=== PATIENT | female | born 1945 | race Caucasian/White ===

== ENCOUNTER 2016-08-31 15:39 | Emergency (ER) | payer OTHER ==
[~2016-08-31] VITALS: Ht 163.8 cm; Wt 87.3 kg
[2016-08-31 15:42] VITALS: BP 190/106; PULSE 96; RESP 16; O2SAT 99
--- NOTE | 2016-08-31 16:14 | ED.REPORT ---
HPI-General Illness Date of Service August 31, 2016 ED Provider: Dr. Harish Kelly 71 year old female who presents to the ER due to confusion since 1100 this AM. This morning the patient vomited 3 times in the bathroom. While talking to her later, she could not recall vomiting. He reports that she has asked some other questions repeatedly. Pt has no history of similar. Pt reports occasional constipation, but denies fever, pain,recent falls or any injury. Nursing Notes Stated Complaint: HIGH BP,LOSS OF MEMORY,CONFUSION Chief Complaint: Neuro Symptoms/ Deficits Nursing Notes Reviewed: Yes Allergies: Coded Allergies: No Known Allergies (Verified Allergy, Mild, 05/13/07) General Time Seen by MD: 16:14 Chief Complaint Altered mental status (Confusion) Hx Obtained From: Patient, Other family... Arrived By: Walk-in Sudden in Onset?: Yes Onset Occurred: 5 - 8 hours ago Symptom Duration: Since onset Severity: Current: No pain currently Similar Sx Previous: No Past Medical History Past Medical History Denies: Congestive heart failure, Coronary artery disease, Diabetes mellitus, Hypertension, Stroke Past Surgical History Reports: Tonsillectomy Smoking History Former Smoker Social History Alcohol Use: 3-5 per day Other Social History: Good social support, Ambulatory Status Independent Review of Systems Full Review of Systems Constitutional: Denies: Fever Respiratory: Denies: Non-productive cough, Shortness of breath GI: Reports: Constipation (on occasion), Nausea, Vomiting, Denies: Abdominal pain, Diarrhea Neurologic: Reports: Confusion, Denies: Headache Complete sys rev & neg: except as marked. Physical Exam Vital Signs Vital Signs Date Time Temp Pulse Resp B/P Pulse Ox O2 Delivery O2 Flow Rate FiO2 08/31/16 18:43 83 27 157/78 93 Room Air 08/31/16 16:57 73 15 170/63 97 Room Air 08/31/16 15:42 36.8 96 16 190/106 99 Room Air Initial VS: Reviewed, Vital signs abnormal General/Constitutional: Well-developed, Well-nourished Head / Eyes: Atraumatic, Normocephalic, PERRL ENT: Mucous membranes moist, Conjunctiva normal, No scleral icterus Neck: Supple, Non-tender, Full range of motion Respiratory: Breath sounds normal, Clear to auscultation, No respiratory distress Cardiovascular: Regular rate & rhythm, Heart sounds normal, Intact distal pulses Abdomen / GI: Soft, Non-tender, No guarding, No rebound, No distention Extremities: Vascular intact, Neuro intact, No swelling, No tenderness Skin: Warm, Dry, No cyanosis Neurologic: Alert, Oriented, Nonfocal Psychiatric: Mood/affect normal, Behavior normal, Normal thought content NIH Stroke Scale Level of Consciousness: Alert and responsive (0) Ask Month & Age: Both questions right (0) Open/Close Eyes/Hand [employer] Le[employer] Manager: Performs both tasks (0) Horizontal EO Movements: None (0) Visual Eckert: No visual loss (0) Facial Palsy: Normal symmetry (0) Right Arm Motor Drift (10s): No drift 10 sec (0) Left Arm Motor Drift (10s): No drift 10 sec (0) Right Leg Motor Drift (5s): No drift 5 sec (0) Left Leg Motor Drift (5s): No drift 5 sec (0) Limb Ataxia FNF/Heel-Srivastava: No ataxia (0) Sensation (Arms/Legs/Face): No sensory loss (0) Language Aphasia: No aphasia, normal (0) Dysarthria: No dysarthria, normal (0) Extinction/Inattention: No exctinct/inattent (0) NIHSS Score: 0 Time NIHSS Performed: 16:24 Date NIHSS Performed: August 31, 2016 Interpretation & Diagnostics Lab Results Interpretation Result Diagram: 08/31/16 1625 08/31/16 1625 Test 08/31/16 16:25 08/31/16 17:38 White Blood Count 6.6th/mm3 (3.8-10.1) Red Blood Count 5.19mil/mm3 (3.90-5.20) Hemoglobin 15.8g/dL (12.0-15.6) Hematocrit 45.7% (35.0-46.0) Mean Corpuscular Volume 88.1fL (81-100) Mean Corpuscular Hemoglobin 30.4pg (27.0-35.0) Mean Corpuscular Hemoglobin Concent 34.6% (32.0-37.0) Red Cell Distribution Width 14.0% (12.3-15.4) Platelet Count 281bil/L (150-400) Neutrophils (%) (Auto) 59.2% (40-74) Lymphocytes (%) (Auto) 31.0% (14-46) Monocytes (%) (Auto) 4.2% (4-12) Eosinophils (%) (Auto) 5.2% (0-5) Basophils (%) (Auto) 0.2% (0-3) Hold Purple Top Tube Received (Received) Hold Blue Top Tube Received (Received) Sodium Level 142mEq/L (134-144) Potassium Level 4.2mEq/L (3.5-5.2) Chloride Level 105mEq/L (97-108) Carbon Dioxide Level 22mmol/L (18-29) Blood Urea Nitrogen 16mg/dL (8-27) Creatinine 0.64mg/dL (0.57-1.00) Estimat Glomerular Filtration Rate 131mL/min (>59) Glucose Level 129mg/dL (60-99) Calcium Level 9.4mg/dL (8.5-10.1) Total Bilirubin 0.5mg/dL (0.0-1.2) Aspartate Amino Transf (AST/SGOT) 20U/L (0-50) Alanine Aminotransferase (ALT/SGPT) 14U/L (0-32) Alkaline Phosphatase 76U/L (25-165) Total Protein 6.9g/dL (6.4-8.4) Albumin 4.2g/dL (3.4-5.0) Thyroid Stimulating Hormone (TSH) 2.700uIU/mL (0.450-4.500) Hold [place] Top Tube Received (Received) Urine Color Yellow (YELLOW) Urine Appearance Clear (CLEAR,HAZY) Urine pH 5.5 (5.0-8.0) Urine Specific [place] 1.020 (1.003-1.035) Urine Protein Negativemg/dL (NEG,TRACE) Urine Glucose (UA) Negativemg/dL (NEGATIVE) Urine Ketones 40mg/dL (NEGATIVE) Urine Occult Blood Negative (NEGATIVE) Urine Nitrite Positive (NEGATIVE) Urine Bilirubin Negative (NEGATIVE) Urine Urobilinogen Normalmg/dL (NORMAL) Urine Leukocyte Esterase Trace (NEGATIVE) Urine RBC 0-2/hpf (0-2) Urine WBC 11-50/hpf (0-5) Urine Epithelial Cells Few/hpf (NONE-MOD) Urine Crystals None seen (NONE SEEN) Urine Bacteria Many/hpf (NONE-FEW) Urine Hyaline Casts None/lpf (NONE) Urine Granular Casts None seen (NONE SEEN) Urine Waxy Casts None seen (NONE SEEN) Urine Red Blood Cell Casts None seen (NONE SEEN) Urine White Blood Cell Casts None seen (NONE SEEN) Urine Mucus None seen (None Seen) Urine Trichomonas None seen (NONE SEEN) Urine Yeast None (NONE SEEN) Urinalysis Comment None Urine Culture Reflexed Indicated General Lab Results Interp 1: Labs reviewed ECG Interpretation Time: 16:53 Interpreted by: ED physician Normal ECG Interpretation: Normal rate (68), Normal sinus rhythm, No acute ischemic changes X-Ray Chest Interpretation Chest Xray Interpretation: IMPRESSION: Mild chronic appearing interstitial prominence which may simply reflect age-related pulmonary degenerative change. No definite COPD. Dictated by: Austin Estrada M.D. on 08/31/2016 at 16:55 View: AP & lat Interpretation / Wet Read by: Interpret - Radiologist Re-Eval/Medical Decision Time of Eval: 19:23 Re-Evaluation/Progress Note: Pt resting comfortably in bed. Updated pt of labs, ECG and imaging results. Discussed plan for discharge and follow up. All questions addressed. Counseled Regarding: Diagnosis, Lab results, Need for follow-up, When/why to return to ED Discharge & Departure Primary Impression: Urinary tract infection Urinary tract infection type: site unspecified Hematuria presence: without hematuria Qualified Code: N39.0 - Urinary tract infection, site not specified Additional Impression: Delirium, acute Disposition: Home Discharge Condition All VS Reviewed: Yes Condition: Improved Patient Instructions: Urinary Tract Infection in Women (ED) Additional Instructions: Your lab results today showed a urinary tract infection. UTI's can cause confusion, so this should improve after the infection is cleared. Take the antibiotic Keflex as directed. You can take your first dose tomorrow as the IV antibiotic we gave tonight will last for 24 hours. You can take Zofran as directed for nausea. Return to the ER for high fever, vomiting, chills, unable to get out of bed or if worse. Follow up with your primary care provider. Referrals: Nile Louise PA-C (PCP) Scribe Attestation Portions of this note were transcribed by Diana Lezama. I, (Dr. Kelly) personally performed the history, physical exam and medical decision-making; I reviewed and confirmed the accuracy of the information in the transcribed note. Signed by: Diana Lezama. Kiran, 08/31/2016, 1927 copies to: Nile Louise PA-C, Kirk H MD August 31, 2016 16:14 Diana Lezama August 31, 2016 16:30
[2016-08-31 16:51] LABS: BASOPHILS % (AUTO) 0.2 % (0-3); EOSINOPHILS % (AUTO) 5.2 % (0-5); MONOCYTES % (AUTO) 4.2 % (4-12); Mean Corpuscular Hemoglobin 30.4 pg (27.0-35.0); Mean Corpuscular Volume 88.1 fL (81-100); NEUTROPHILS % (AUTO) 59.2 % (40-74); Platelet Count 281 bil/L (150-400)
[2016-08-31 16:57] VITALS: BP 170/63; PULSE 73; RESP 15; O2SAT 97
--- NOTE | 2016-08-31 16:57 | DRSVH ---
PROCEDURE: X-RAY CHEST, TWO VIEWS ([id number]) INDICATIONS: confusion TECHNIQUE: 2 views of the chest were acquired. COMPARISON: [facility], CR, CHEST 2VW, 05/13/2007, 15:23. FINDINGS: Surgical changes and devices: None. Lungs and pleura: No pleural effusions or pneumothorax. Lungs are abnormal with a mild chronic appe aring interstitial prominence. Mediastinum: Mediastinal contours are normal. Heart size is normal. Bones and chest wall: No suspicious bony abnormalities. Soft tissues appear unremarkable. IMPRESSION: Mild chronic appearing interstitial prominence which may simply reflect age-related pulmo nary degenerative change. No definite COPD. Dictated by: Austin Estrada M.D. on 08/31/2016 at 16:55 Approved by: Austin Estrada M.D. on 08/31/2016 at 16:56
[2016-08-31 17:53] LABS: APPEARANCE,URINE CLEAR (CLEAR,HAZY); COLOR,URINE YELLOW (YELLOW); PH,URINE 5.5 (5.0-8.0)
[2016-08-31 17:54] LABS: OCCULT BLOOD,URINE NEGATIVE (NEGATIVE); UROBILINOGEN,URINE NORMAL (NORMAL)
[2016-08-31 18:43] VITALS: BP 157/78; PULSE 83; RESP 27; O2SAT 93
[2016-08-31] MEDS ORDERED: cefTRIAXone Inj 2,000 MG in Dextrose 5% Minibag Plus 50 ML IV ONE (19:30)
[2016-08-31] MEDS ORDERED: CEPH-512 PO (19:52)
[2016-08-31] MEDS ORDERED: Ondansetron 2 mg/mL 2 mL Inj IVPUSH ONE (19:55)
[2016-08-31 20:17] VITALS: BP 142/76; PULSE 76; RESP 18; O2SAT 94
[2016-08-31 20:23] VITALS: BP 142/76; PULSE 69; RESP 15; O2SAT 95
== END 2016-08-31 20:20 | disposition home or self-care (01) ==
LOC: SED 15:39
DX: N39.0 Urinary tract infection, site not specified (principal); R41.0 Disorientation, unspecified; Z87.891 Personal history of nicotine dependence
CPT/HCPCS: 71020; 80053; 81000; 84443; 85025; 87086; 87088; 87186; 93005; 96365; 96375; 99284; J0696; J2405